=== PATIENT | male | born 1975 | race Caucasian/White ===

== ENCOUNTER 2019-01-28 13:39 | Emergency (ER) | payer SELFPAY ==
[2019-01-28 13:56] VITALS: BP 135/90; PULSE 92; TEMP 98.9; BMI 29.6
[2019-01-28] MEDS ORDERED: DIPHTH,PERTUSS(ACELL),TET 0.5 ML DISP.SYRIN IM ONE ×2 (14:07→14:11)
--- NOTE | 2019-01-28 14:49 | PDOC ---
History of Present Illness - General Chief Complaint: Injury Stated Complaint: LAC LT 3RD DIGIT Time Seen by Provider: 01/28/19 14:06 - History of Present Illness Initial Comments: 01/28/19 14:48 43-year-old male without comorbidities presents for evaluation of his left fourth finger after a injury using an electric saw.Unsure of current tetanus Past History - Past Medical History Allergies/Adverse Reactions: Allergies Allergy/AdvReac Type Severity Reaction Status Date / Time No Known Allergies Allergy Verified 01/28/19 13:55 - Suicide/Smoking/Psychosocial Hx Smoking History: Never smoked Have you smoked in the past 12 months: No Information on smoking cessation initiated: No Hx Alcohol Use: No Drug/Substance Use Hx: No Review of Systems - Review of Systems Integumentary: Yes: See HPI *Physical Exam - Vital Signs Last Vital Signs Temp Pulse Resp BP Pulse Ox 98.9 F 92 H 16 135/90 100 01/28/19 13:45 01/28/19 13:45 01/28/19 13:45 01/28/19 13:45 01/28/19 13:45 - Physical Exam Comments: 01/28/19 14:48 There is a 1 cm wound on the volar surface of the left fourth finger on the skin overlying the middle phalanx. FDS and FDP working independently NVID ED Treatment Course - RADIOLOGY Radiology Studies Ordered: Category Date Time Status FINGER(S) LEFT [RAD] Stat Radiology 01/28/19 14:07 Completed - Medications Given in the ED: ED Medications Discontinued Medications Generic Name Dose Route Start Last Admin Trade Name Freq PRN Reason Stop Dose Admin Diphtheria/Tetanus/Acell Pertussis 0.5 ml 01/28/19 14:07 01/28/19 14:11 Boostrix - IM 01/28/19 14:08 0.5 ml .ONCE ONE Administration Medical Decision Making - Medical Decision Making 01/28/19 14:47 Under aseptic technique a digital block was introduced with 6 mL of 1% lidocaine without epinephrine. The wound was explored to its base in a bloodless field there was no foreign body identified. The wound was copiously irrigated with normal saline and with Betadine. Edges approximated with 3 simple interrupted sutures using 4-0 nylon dry sterile dressing was placed 01/28/19 14:49 No fx or FB on raidograph *DC/Admit/Observation/Transfer Diagnosis at time of Disposition: Laceration of finger of left hand - Discharge Dispostion Disposition: HOME Condition at time of disposition: Stable Decision to Admit order: No - Referrals Referrals: Avinash Garcia MD [Staff Physician] - - Patient Instructions Printed Discharge Instructions: DI for Laceration Repair Additional Instructions: Sutures out in no less than 10 days Follow up with hand surgery in 1-2 days Return to the ER in 10 days for suture removal Sooner if problems develop such as increasing pain, redness, or swelling, or even drainage Keep the dressing on for the next 48 hours After 48 hours remove the dressing, wash the finger with soap and water and leave it open to air. Cover the wound if you are out of the house DO not apply any ointments - Post Discharge Activity
== END 2019-01-28 14:49 | disposition home or self-care (01) ==
LOC: JERFT 13:39 → JER 13:39 → JERFT 14:49
PROC: 0HQGXZZ Repair Left Hand Skin, External Approach (ICD-10-PCS; principal; 2019-01-28)
PROC: 3E0234Z Introduction of Serum, Toxoid and Vaccine into Muscle, Percutaneous Approach (ICD-10-PCS; 2019-01-28)
DX: S61.215A Laceration without foreign body of left ring finger without damage to nail, initial encounter (principal); W29.8XXA Contact with other powered hand tools and household machinery, initial encounter; Y93.9 Activity, unspecified; Y92.9 Unspecified place or not applicable
CPT/HCPCS: 73140-TC-LT-FY; 90715; 99281-25

== ENCOUNTER 2019-02-06 18:07 | Emergency (ER) | payer SELFPAY ==
[2019-02-06 18:15] VITALS: BP 136/91; PULSE 93; TEMP 98; BMI 29.2
--- NOTE | 2019-02-06 18:37 | PDOC ---
History of Present Illness - General Chief Complaint: Suture/Staple Removal(Here) Stated Complaint: SUTURE/STAPLE REMOVAL Time Seen by Provider: 02/06/19 18:28 - History of Present Illness Initial Comments: 02/06/19 18:36 43-year-old male presents for removal of sutures from his left middle finger he' s had no sequelae since suture placement. Past History - Past Medical History Allergies/Adverse Reactions: Allergies Allergy/AdvReac Type Severity Reaction Status Date / Time No Known Allergies Allergy Verified 02/06/19 18:11 COPD: No - Immunization History Immunization Up to Date: Yes (01/28/19) - Suicide/Smoking/Psychosocial Hx Smoking History: Never smoked Have you smoked in the past 12 months: No Hx Alcohol Use: No Drug/Substance Use Hx: No Review of Systems - Review of Systems Constitutional: No: Fever *Physical Exam - Vital Signs Last Vital Signs Temp Pulse Resp BP Pulse Ox 98 F 93 H 18 136/91 96 02/06/19 18:09 02/06/19 18:09 02/06/19 18:09 02/06/19 18:09 02/06/19 18:09 - Physical Exam Comments: 02/06/19 18:36 Left middle finger wound skin clean dry and intact normal skin color and temperature sutures are in place Medical Decision Making - Medical Decision Making 02/06/19 18:35 The wound was clean dry and intact with normal skin color and temperature surrounding the wound. Sutures were removed with an 11 blade a needle equipment driver without complication Steri-Strip placed. *DC/Admit/Observation/Transfer Diagnosis at time of Disposition: Visit for suture removal - Discharge Dispostion Disposition: HOME Condition at time of disposition: Stable Decision to Admit order: No - Referrals Referrals: Avinash Garcia MD [Staff Physician] - - Patient Instructions Additional Instructions: Please keep the Steri-Strips/dressing on for the next 48 hours. After 48 hours you may remove the dressing and wash the area with soap and water and leave it open to air. Return to the emergency room should she develop problems such as redness, swelling, drainage, or increasing pain around the area otherwise follow -up with your primary care physician in 2-3 days for a wound check. The area open to air as much as possible again cover the area if you are leaving the house or doing work. You may take Tylenol and Motrin as directed as per the instructions on the box. This will help with pain. - Post Discharge Activity
== END 2019-02-06 18:37 | disposition home or self-care (01) ==
LOC: JERFT 18:07
DX: Z48.817 Encounter for surgical aftercare following surgery on the skin and subcutaneous tissue (principal); Z48.02 Encounter for removal of sutures
CPT/HCPCS: 99281-25

== ENCOUNTER 2019-09-06 19:40 | Emergency (ER) | payer SELFPAY ==
--- NOTE | 2019-09-06 19:51 | PDOC ---
Rapid Medical Evaluation Time Seen by Provider: 09/06/19 19:45 Medical Evaluation: Allergies Allergy/AdvReac Type Severity Reaction Status Date / Time No Known Allergies Allergy Verified 02/06/19 18:11 09/06/19 19:49 I performed a brief in-person evaluation of this patient. 43-year-old male with renal colic presenting with 2 days of fever (TMax 102) and dry cough. Pertinent physical exam findings: No resp distress Clear lungs Ambulatory without difficulty HR 122 Dispo: CXR Likely dc home Isolation precautions and [facility] drive-thru testing information reviewed ED return precautions discussed Discharge Disposition - Diagnosis Cough - Referrals - Patient Instructions Printed Discharge Instructions: [facility]-Coronavirus Instructions, [facility] COVID-19 Isolation Protocol Additional Instructions: Joyce acetaminophen para fiebre Necessita quedarse en casa Regrese aqui si no puede respirar or tiene otras symptomas seriosas Puede llamar para jannette jareth para la prueba de COVID-19 si quiere [facility] COVID-19 Drive-Thru Site Now Open to the Public - BY APPOINTMENT ONLY How to make an appointment? Please call [phone] from 8:30 a.m. - 6 p.m. You will receive a screening, and if appropriate, youll be given an appointment. We will need your phone number and address, and your primary care physician information. What should I bring? When you come, you need your photo identification. When will I receive my results? At this time, results can take up to five days. - Post Discharge Activity
[2019-09-06 19:55] VITALS: BP 154/100; PULSE 122; TEMP 99.1
== END 2019-09-06 20:29 | disposition home or self-care (01) ==
LOC: JER 19:40
DX: R05 Cough (principal)
CPT/HCPCS: 71045-TC-FY; 99283-25

== ENCOUNTER 2021-04-26 15:45 | Emergency (ER) | payer OTHER ==
[2021-04-26 15:52] VITALS: BP 149/98; PULSE 85; TEMP 97; BMI 28.8
[2021-04-26] MEDS ORDERED: KETOROLAC TROMETHAMINE 30 MG/1 ML VIAL IVPUSH ONE (16:55)
[2021-04-26] MEDS ORDERED: SODIUM CHLORIDE 0.9% 500 ML INFUS.BAG IV ONE (16:55)
[2021-04-26] MEDS ORDERED: KETOROLAC TROMETHAMINE 30 MG/1 ML VIAL ONE (17:07)
[2021-04-26 17:39] LABS: BASO % 0.5 % (0-2.0); EOS % 0.7 % (0-4.5); HEMATOCRIT 45.2 % (35.4-49); HEMOGLOBIN 15.1 GM/dL (11.7-16.9); LYMPH % 13.7 % (8-40); MCH 30.4 pg (25.7-33.7); MCHC 33.5 g/dl (32.0-35.9); MEAN CELL VOLUME 90.7 fl (80-96); MEAN PLT VOLUME 9.5 fl (7.5-11.1); MONO % 5.8 % (3.8-10.2); NEUT % 79.3 % (42.8-82.8); PLATELET COUNT 312 10^3/uL (134-434); RBC 4.98 M/mm3 (4.00-5.60); RDW 12.9 % (11.9-15.9); WHITE BLOOD COUNT 12.7 K/mm3 (4.0-10.0)
[2021-04-26 17:53] LABS: ALBUMIN 4.3 g/dl (3.4-5.0); CALCIUM 9.7 mg/dL (8.5-10.1)
[2021-04-26 17:54] LABS: BLOOD UREA NITROGEN 12.4 mg/dL (7-18)
[2021-04-26 17:58] LABS: BILIRUBIN,TOTAL 0.4 mg/dL (0.2-1); TOT PROT 7.8 g/dl (6.4-8.2)
[2021-04-26 19:58] LABS: EPI CELLS 1 /uL (0-25.1); HYALINE CASTS 0 /uL (0-3.1); PH,URINE 5.5 (5.0-8.0); URINE APPEARANCE CLEAR; URINE BACTERIA 1 /uL (0-1359); URINE BILIRUBIN NEGATIVE (NEGATIVE); URINE COLOR YELLOW; URINE GLUCOSE (UA) NEGATIVE (NEGATIVE); URINE KETONE NEGATIVE (NEGATIVE); URINE LEUK ESTERASE NEGATIVE (NEGATIVE); URINE NITRITE NEGATIVE (NEGATIVE); URINE PROTEIN NEGATIVE (NEGATIVE); URINE RBC 1 /uL (0-23.9); URINE UROBILINOGEN 0.2 mg/dL (0.2-1.0); URINE WBC 3 /uL (0-25.8)
[2021-04-26] MEDS ORDERED: TAMSULOSIN HCL 0.4 MG CAP PO ONE (19:58)
[2021-04-26] MEDS ORDERED: TAMSULOSIN HCL 0.4 MG CAP ONE (20:04)
== END 2021-04-26 21:18 | disposition home or self-care (01) ==
LOC: JER 15:45
PROC: 3E0333Z Introduction of Anti-inflammatory into Peripheral Vein, Percutaneous Approach (ICD-10-PCS; principal; 2021-04-26)
DX: N23 Unspecified renal colic (principal)
CPT/HCPCS: 36415; 74176-TC; 80053; 81003; 85025; 99285-25